=== PATIENT | female | born 1990 | race African-American/Black ===

== ENCOUNTER 2019-04-24 11:43 | Emergency (ER) | payer OTHER ==
[~2019-04-24] VITALS: Ht 162.6 cm; Wt 71.4 kg
[2019-04-24 12:40] LABS: HEMATOCRIT 38.5 % (36.0-47.0); HEMOGLOBIN 12.8 g/dl (12.0-15.5); MEAN CORPUSCULAR HEMOGLOBIN 29.4 pg (27.0-33.0); MEAN CORPUSCULAR HGB CONC 33.2 g/dl (32.0-36.5); MEAN CORPUSCULAR VOLUME 88.3 fl (80.0-96.0); PLATELET COUNT, AUTOMATED 391 10^3/uL (150-450); RED BLOOD COUNT 4.36 10^6/uL (4.00-5.40); WHITE BLOOD COUNT 5.8 10^3/uL (4.0-10.0)
[2019-04-24 13:04] LABS: INFLUENZA A AMPLIFICATION NEGATIVE (NEGATIVE); INFLUENZA B AMPLIFICATION NEGATIVE (NEGATIVE)
[2019-04-24 13:37] LABS: BLOOD UREA NITROGEN 5 MG/DL (7-18); CARBON DIOXIDE LEVEL 28 MEQ/L (21-32); CHLORIDE LEVEL 104 MEQ/L (98-107); CREATININE FOR GFR 0.49 MG/DL (0.55-1.30); GLOMERULAR FILTRATION RATE > 60.0 (>60); GLUCOSE, FASTING 87 MG/DL (70-100); HCG, SERUM QUANTITATIVE 131135 MIU/ML; POTASSIUM SERUM 4.2 MEQ/L (3.5-5.1); SODIUM LEVEL 137 MEQ/L (136-145)
[2019-04-24] MEDS ORDERED: NS 1,000 ML IV ONE (13:45)
[2019-04-24] MEDS ORDERED: ONDANSETRON 4MG/2ML VIAL (J2405) IV ONE (13:45)
[2019-04-24] MEDS ORDERED: ONDA4TAB6 PO (15:25)
[2019-04-24 15:38] VITALS: BP 101/58
== END 2019-04-24 15:47 | disposition home or self-care (01) ==
LOC: M ED 11:43
DX: O21.9 Vomiting of pregnancy, unspecified (principal); Z91.89 Other specified personal risk factors, not elsewhere classified; Z91.018 Allergy to other foods
CPT/HCPCS: 80048; 81001; 84702; 85027; 87502; 96361; 96374; 99284; J2405

== ENCOUNTER 2019-09-26 11:18 | Emergency (ER) | payer OTHER ==
[~2019-09-26] VITALS: Ht 165.1 cm; Wt 78.7 kg
[~2019-09-26 11:18] MED LIST: ONDA4TAB6 PO
[2019-09-26] MEDS ORDERED: PREN29CH2 PO (11:26)
[2019-09-26 11:54] LABS: BASO % 0.1 % (0.0-1.0); EOS # 0.1 10^3/uL (0.0-0.5); EOS % 1.8 % (0.0-3.0); HEMATOCRIT 31.6 % (36.0-47.0); HEMOGLOBIN 10.6 g/dl (12.0-15.5); LYMPH # 1.3 10^3/uL (1.5-5.0); LYMPH % 18.2 % (24.0-44.0); MEAN CORPUSCULAR HEMOGLOBIN 28.8 pg (27.0-33.0); MEAN CORPUSCULAR HGB CONC 33.5 g/dl (32.0-36.5); MEAN CORPUSCULAR VOLUME 85.9 fl (80.0-96.0); MONO # 0.8 10^3/uL (0.0-0.8); MONO % 10.6 % (0.0-5.0); NEUTROPHILS # 4.9 10^3/uL (1.5-8.5); NEUTROPHILS % 68.9 % (36.0-66.0); PLATELET COUNT, AUTOMATED 310 10^3/uL (150-450); RED BLOOD COUNT 3.68 10^6/uL (4.00-5.40); WHITE BLOOD COUNT 7.1 10^3/uL (4.0-10.0)
[2019-09-26] MEDS ORDERED: NS 1,000 ML IV ONE (12:00)
[2019-09-26 12:27] LABS: ALBUMIN 2.5 GM/DL (3.2-5.2); ALT/SGPT 14 U/L (12-78); BILIRUBIN,DIRECT < 0.1 MG/DL (0.0-0.2); BILIRUBIN,TOTAL 0.2 MG/DL (0.2-1.0); BLOOD UREA NITROGEN 5 MG/DL (7-18); CALCIUM LEVEL 8.8 MG/DL (8.5-10.1); CARBON DIOXIDE LEVEL 21 MEQ/L (21-32); CHLORIDE LEVEL 107 MEQ/L (98-107); CK-MB VALUE MASS < 1.0 NG/ML (<3.6); CPK CREATINE PHOSPHOKINASE 43 U/L (26-192); CREATININE FOR GFR 0.43 MG/DL (0.55-1.30); FREE T4 0.75 NG/DL (0.76-1.46); GLOMERULAR FILTRATION RATE > 60.0 (>60); GLUCOSE, FASTING 102 MG/DL (70-100); LIPASE 144 U/L (73-393); MB/CK RELATIVE INDEX 2.33 (< OR =4); POTASSIUM SERUM 3.6 MEQ/L (3.5-5.1); SODIUM LEVEL 137 MEQ/L (136-145); TOTAL PROTEIN 6.3 GM/DL (6.4-8.2); TROPONIN I < 0.02 NG/ML (< 0.10)
[2019-09-26 13:30] VITALS: BP 111/55
--- NOTE | 2019-09-27 10:10 | ECGEPIP ---
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
== END 2019-09-26 13:48 | disposition home or self-care (01) ==
LOC: M ED 11:18
DX: R00.2 Palpitations (principal); I49.3 Ventricular premature depolarization; Z79.899 Other long term (current) drug therapy; Z91.018 Allergy to other foods; Z91.89 Other specified personal risk factors, not elsewhere classified

== ENCOUNTER 2019-10-02 20:32 | Emergency (ER) | payer OTHER ==
[~2019-10-02] VITALS: Ht 165.1 cm; Wt 79.0 kg
[~2019-10-02 20:32] MED LIST changes: +PREN29CH2 PO
[2019-10-02] MEDS ORDERED: TUMS500C PO (20:46)
[2019-10-02] MEDS ORDERED: LEXA1TAB PO (20:46)
[2019-10-02] MEDS ORDERED: ONDANSETRON 4MG/2ML VIAL As Ordered ONE (20:54)
[2019-10-02] MEDS ORDERED: NS 1,000 ML IV ONE (21:00)
[2019-10-02] MEDS ORDERED: ONDANSETRON 4MG/2ML VIAL IV ONE (21:00)
[2019-10-02 21:25] LABS: BASO % 0.2 % (0.0-1.0); EOS # 0.1 10^3/uL (0.0-0.5); EOS % 1.3 % (0.0-3.0); HEMATOCRIT 33.6 % (36.0-47.0); LYMPH # 1.7 10^3/uL (1.5-5.0); LYMPH % 20.3 % (24.0-44.0); MEAN CORPUSCULAR HEMOGLOBIN 28.5 pg (27.0-33.0); MEAN CORPUSCULAR HGB CONC 32.7 g/dl (32.0-36.5); MONO # 0.8 10^3/uL (0.0-0.8); MONO % 10.2 % (0.0-5.0); NEUTROPHILS # 5.6 10^3/uL (1.5-8.5); NEUTROPHILS % 67.6 % (36.0-66.0); PLATELET COUNT, AUTOMATED 330 10^3/uL (150-450); RED BLOOD COUNT 3.86 10^6/uL (4.00-5.40); WHITE BLOOD COUNT 8.2 10^3/uL (4.0-10.0)
[2019-10-02 21:49] LABS: ALBUMIN 2.5 GM/DL (3.2-5.2); ALT/SGPT 15 U/L (12-78); BILIRUBIN,DIRECT < 0.1 MG/DL (0.0-0.2); BILIRUBIN,TOTAL 0.1 MG/DL (0.2-1.0); LIPASE 152 U/L (73-393); TOTAL PROTEIN 6.6 GM/DL (6.4-8.2)
[2019-10-02 22:45] VITALS: BP 111/69
[2019-10-02] MEDS ORDERED: ONDA4TAB6 PO (23:01)
== END 2019-10-02 23:25 | disposition home or self-care (01) ==
LOC: M ED 20:32
DX: K52.9 Noninfective gastroenteritis and colitis, unspecified (principal); Z79.899 Other long term (current) drug therapy; Z91.018 Allergy to other foods; Z91.89 Other specified personal risk factors, not elsewhere classified
CPT/HCPCS: 80047; 80076; 81001; 83690; 85025; 87486; 87581; 87633; 87798; 93041; 96361; 96374; 99284; J2405

== ENCOUNTER 2019-11-26 22:45 | Inpatient (IN) | payer OTHER ==
[~2019-11-26] VITALS: Ht 165.1 cm; Wt 81.0 kg
[~2019-11-26 22:45] MED LIST changes: +LEXA1TAB PO; +TUMS500C PO
[2019-11-26] MEDS ORDERED: OXYTOCIN 30 UNITS IN 0.9% NaCl 500ML IV BAG (J2590) As Ordered ONE (23:28)
[2019-11-26 23:40] LABS: HEMOGLOBIN 11.2 g/dl (12.0-15.5); MEAN CORPUSCULAR HEMOGLOBIN 27.6 pg (27.0-33.0); MEAN CORPUSCULAR HGB CONC 32.9 g/dl (32.0-36.5); MEAN CORPUSCULAR VOLUME 83.7 fl (80.0-96.0); PLATELET COUNT, AUTOMATED 346 10^3/uL (150-450); RED BLOOD COUNT 4.06 10^6/uL (4.00-5.40); WHITE BLOOD COUNT 7.6 10^3/uL (4.0-10.0)
[2019-11-26] MEDS ORDERED: FENTANYL 2MCG/ML ROPIVACAINE 0.2% IN 0.9% NACL 100ML IVBAG As Ordered ONE (23:49)
--- NOTE | 2019-11-27 00:29 | HPEPDOC ---
Obstetrical History & Physical General Date of Admission Nov 26, 2019 at 22:45 History of Present Illness 29yo presents with c/o ctx. Reports active movement. No vaginal bleeding or LOF. Chief Complaint: Contractions, term Information Provided By: Patient Age: 29 : 2 Term: 1 Livin Care Care: Good Care Dating Final EDC: Dec 07, 2019 Final EDC by: LMP LMP: Mar 02, 2019 Past Medical History Past Obstetrical History : Past Obstetrical History: Multigravida Type of Delivery: Spontaneous Vaginal Del. 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: No pertinent history Past Medical History Surgical History: Denies/None Family History Significant Family History: No pertinent family hx Social History Marital Status: Psychosocial History: No pertinent psych hx * Smoker: non-smoker Alcohol: Denies Drugs: denies Allergies Coded Allergies: Blackberry (Verified Allergy, Unknown, swelling, 04/24/19) nickel (Verified Allergy, Unknown, rash/bleeding, 04/24/19) Medications Scheduled Calcium Carbonate (Tums) 200 Mg Tab.chew, 2 TAB PO QID for cough and congestion Escitalopram Oxalate (Lexapro) 10 Mg Tablet, 10 MG PO DAILY No115/Iron/Folic Acid ( 19 Chewable Tablet) 1 Each Tab.chew, 1 TAB PO DAILY Scheduled PRN Ondansetron (Ondansetron Odt) 4 Mg Tab.rapdis, 1 TAB PO Q6-8HP PRN for nausea/vomiting Physical Examination Physical Examination GENERAL: Alert and oriented times three. BREAST: . ABDOMEN: Gravid and non-tender to touch. FETUS: Is vertex (VTX) by sterile vaginal examination (SVE), fetus is vertex (VTX) by Justin. HEART RATE: Regular rate and rhythm. LUNGS: Clear to auscultation (CTA). Laboratory Data 24H LABS Laboratory Tests 2 11/26/19 23:20: Nucleated Red Blood Cells % (auto) 0.0 11/26/19 23:44: Serology Scanned Report Hepatitis B Testing CBC/BMP Laboratory Tests 11/26/19 23:20 Pertinent Laboratoy Data Blood Type: O+ HIV: Negative Hepatitis B: Negative Rapid Plasma Reagin: Nonreactive Rubella: Immune Varicella: Immune Chlamydia/Gonorrhea: Negative Group B Streptococcus: Negative Glucose Tolerance Test: 156 Anatomy Ultrasound Placenta Location: Anterior Placenta Previa: No Other Ultrasounds echogenic focus Vaginal Examination Dilation: 6 cm Effacement: 90% Station: -1, 0 Cervical Consistency: Soft Cervical Position: Anterior Presentation: Cephalic presentation Assessment Variability: Moderate Accelerations: Positive Tocometer Contractions: Yes Frequency: regular, every 2-5 min. Assessment/Plan Assessment 29yo 38w3d in active labor Reassuring status Plan Admit and orient. 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 Group B Streptococcus (GBS) negative. Labs and intravenous (IV) per unit protocol. Counseled on Pitocin and induction of labor (IOL). Anticipate normal spontaneous delivery (). C-S as appropriate. MISA GUTIERREZ MD. Nov 27, 2019 00:29
--- NOTE | 2019-11-27 00:33 | DNPDOC ---
[facility] Delivery Note Delivery Note DATE OF DELIVERY: 11/27/2019 TIME OF : 0005 GENDER: Male. APGARS: 8 and 9. WEIGHT: 2440 grams or 5 pounds 6 ounces. LACERATIONS: periurethral, not repaired ANESTHESIA: none COUNTS: 5 laparotomy sponges accounted for prior to after delivery. DELIVERY NOTE: On 11/27/19 at 0005, Mrs Gay a 29yo G2, now P2 had a spontaneous vaginal delivery of viable male , Apgars 8 and 9 and weight was 2440 g or 5 lbs. 6 oz. Head was delivered occiput anterior (OA), followed by delivery of the shoulders and corpus. Infant was handed to mom with a good cry. Cord was clamped times two and was cut by the father of baby under my direction. Placenta was then drained and delivered grossly intact. A premixed bag of 500 mL of normal saline with 30 units of Pitocin was then bolused along with uterine massage until the uterus was firm. On inspection there was a periurethral laceration that was not repaired. Otherwise, cervix, vagina, perineum was grossly intact and hemostatic. Mom and baby in recovery on stable condition. The couple decided to name there son, Nany. MISA GUTIERREZ MD. Nov 27, 2019 00:33
[2019-11-27] MEDS ORDERED: OXYTOCIN DRIP 30 UNITS in IV 1 EA IV SCH (00:52)
[2019-11-27] MEDS ORDERED: IBUPROFEN 600MG TAB PO PRN (01:00)
[2019-11-27] MEDS ORDERED: IBUPROFEN 800 MG TAB PO PRN (01:00)
[2019-11-27] MEDS ORDERED: RHOGAM 300 MCG (1500 IU) INJ (J2790) IM SCH (01:00)
[2019-11-27] MEDS ORDERED: DIBUCAINE 1% OINTMENT 30GM TOP PRN (01:00)
[2019-11-27] MEDS ORDERED: DOCUSATE SODIUM 100 MG CAP PO PRN (01:00)
[2019-11-27] MEDS ORDERED: ANUSOL HC CREAM 30GM TOP PRN (01:00)
[2019-11-27] MEDS ORDERED: ACETAMINOPHEN 500 MG TAB PO PRN (01:00)
[2019-11-27] MEDS ORDERED: ACETAMINOPHEN TAB 650MG DOSE (2X325MG) PO PRN (01:00)
[2019-11-27] MEDS ORDERED: MEASLES,MUMPS,RUBELLA VACCINE INJ (MMR-II) (90707) SC SCH (01:00)
[2019-11-27] MEDS ORDERED: METHYLERGONOVINE MALEATE 0.2 MG TAB PO PRN (01:00)
[2019-11-27] MEDS ORDERED: MOM 30ML SUSPENSION UDC PO PRN (01:00)
[2019-11-27] MEDS ORDERED: LIDOCAINE 1% SDV 30ML VIAL SC SCH (01:15)
[2019-11-27 02:30] VITALS: BP 126/56
[2019-11-27 06:00] VITALS: BP 118/58
[2019-11-27] MEDS: PRENATAL VITAMINS CHEWABLE TABLET PO SCH (07:59)
[2019-11-27 18:07] VITALS: BP 116/60
[2019-11-28 06:00] VITALS: BP 130/70
[2019-11-28] MEDS ORDERED: IBUP80TA PO (08:22)
[2019-11-28] MEDS ORDERED: DOCU100C16 PO (08:22)
[2019-11-28] MEDS ORDERED: DIBU10OI TOP (08:22)
[2019-11-28] MEDS: PRENATAL VITAMINS CHEWABLE TABLET PO SCH (08:54)
[2019-11-28] MEDS ORDERED: INFLUENZA QUADRIVALENT PF VACCINE 0.5ML SYRINGE IM ONE (09:00)
--- NOTE | 2019-12-02 18:09 | IPN ---
DATE: 11/27/2019 HISTORY: This patient requested a circumcision of her male . PLAN: After discussing risks and benefits of the circumcision, the medical and non-medical indications, the penile block and after care expressed understanding of penile block and after care and bleeding, signed the Consent Form, all questions were answered, 20 minute discussion, we await the clearance by the coater. JUN
== END 2019-11-28 14:30 | disposition home or self-care (01) | DRG 807 ==
LOC: M LDI 22:45 → M OBS 11-27 02:27
PROVIDERS: ADMIT Obstetrics & Gynecology; ATTEND Obstetrics & Gynecology
PROC: 10E0XZZ Delivery of Products of Conception, External Approach (ICD-10-PCS; principal; 2019-11-27)
DX: O70.0 First degree perineal laceration during delivery (principal); Z37.0 Single live birth; Z3A.39 39 weeks gestation of pregnancy

== ENCOUNTER 2020-04-27 12:01 | Emergency (ER) | payer OTHER ==
[~2020-04-27] VITALS: Ht 165.1 cm; Wt 77.7 kg
[~2020-04-27 12:01] MED LIST changes: +DIBU10OI TOP; +DOCU100C16 PO; +IBUP80TA PO
[2020-04-27] MEDS ORDERED: LEXA1TAB2 PO (12:07)
--- NOTE | 2020-04-27 12:49 | REP ---
INDICATION: TRAUMA/ LIMITED ROM. COMPARISON: None. TECHNIQUE: Three views of the right shoulder are provided. FINDINGS: Three views of the right shoulder demonstrate normal alignment of the glenohumeral and acromioclavicular joints. No fracture or subluxation is seen. Periarticular soft tissues are remarkable for a metallic density overlying but outside of the right mid clavicle consistent with clothing artifact. Metallic zipper components are noted overlying the thoracic spine. IMPRESSION: Presumed clothing artifact. Otherwise negative right shoulder radiographs. No fracture or subluxation seen. <Electronically signed by Case Andrew > 04/27/20 [id number]
[2020-04-27] MEDS ORDERED: KETOROLAC TROMETHAMINE 10 MG TAB PO ONE (13:15)
[2020-04-27 13:31] VITALS: BP 132/79
== END 2020-04-27 13:41 | disposition home or self-care (01) ==
LOC: M ED 12:01
DX: S46.211A Strain of muscle, fascia and tendon of other parts of biceps, right arm, initial encounter (principal); X50.0XXA Overexertion from strenuous movement or load, initial encounter; Y92.9 Unspecified place or not applicable; Y93.B3 Activity, free weights; Y99.9 Unspecified external cause status; Z91.018 Allergy to other foods; Z91.89 Other specified personal risk factors, not elsewhere classified

== ENCOUNTER → 2020-05-27 | Outpatient (CLI) | payer OTHER ==
[~2020-05-27] MED LIST changes: +LEXA1TAB2 PO
--- NOTE | 2020-05-27 10:38 | PFTRPT ---
Height: 65.00 Inches Weight: 160.00 Lbs BSA: 1.80 Diagnosis: SOB DATE: 05/27/2020 ORDERING PHYSICIAN: Chayo Ga Pre and post bronchodilator studies have excellent technical quality. Forced vital capacity is normal. FEV1 is in proportion. Obstructive index is therefore normal. Expiratory limit of the flow-volume loop is normal. No significant bronchodilator response is identified. Total lung capacity is normal. Residual volume is in proportion. Diffusing capacity is normal and remains normal when corrected for alveolar volume. No hemoglobin available for correction. Airway resistance and conductance are normal. IMPRESSION: Normal study. MTDD
== END ==
LOC: M CARPUL 10:03
PROVIDERS: ATTEND Physician Assistant
DX: R06.02 Shortness of breath (principal)

== ENCOUNTER 2020-05-31 19:33 | Emergency (ER) | payer OTHER ==
[~2020-05-31] VITALS: Ht 165.1 cm; Wt 76.6 kg
[2020-05-31] MEDS ORDERED: ACET-838 PO (19:39)
[2020-05-31] MEDS ORDERED: GNP28TAB2 PO (19:40)
[2020-05-31 20:52] LABS: BASO % 0.4 % (0.0-1.0); EOS # 0.1 10^3/uL (0.0-0.5); EOS % 2.7 % (0.0-3.0); HEMATOCRIT 37.4 % (36.0-47.0); HEMOGLOBIN 12.2 g/dl (12.0-15.5); LYMPH # 2.1 10^3/uL (1.5-5.0); LYMPH % 40.2 % (24.0-44.0); MEAN CORPUSCULAR HGB CONC 32.6 g/dl (32.0-36.5); MEAN CORPUSCULAR VOLUME 85.8 fl (80.0-96.0); MONO # 0.7 10^3/uL (0.0-0.8); MONO % 12.5 % (2.0-8.0); NEUTROPHILS # 2.3 10^3/uL (1.5-8.5); NEUTROPHILS % 43.8 % (36.0-66.0); PLATELET COUNT, AUTOMATED 382 10^3/uL (150-450); RED BLOOD COUNT 4.36 10^6/uL (4.00-5.40); WHITE BLOOD COUNT 5.3 10^3/uL (4.0-10.0)
[2020-05-31 21:39] LABS: ALBUMIN 3.4 GM/DL (3.2-5.2); ALT/SGPT 20 U/L (12-78); BILIRUBIN,DIRECT < 0.1 MG/DL (0.0-0.2); BILIRUBIN,TOTAL 0.1 MG/DL (0.2-1.0); BLOOD UREA NITROGEN 17 MG/DL (7-18); CALCIUM LEVEL 8.8 MG/DL (8.5-10.1); CARBON DIOXIDE LEVEL 24 MEQ/L (21-32); CHLORIDE LEVEL 112 MEQ/L (98-107); CK-MB VALUE MASS < 1.0 NG/ML (<3.6); CPK CREATINE PHOSPHOKINASE 150 U/L (26-192); CREATININE FOR GFR 0.71 MG/DL (0.55-1.30); FREE T4 0.78 NG/DL (0.76-1.46); GLOMERULAR FILTRATION RATE > 60.0 (>60); GLUCOSE, FASTING 98 MG/DL (70-100); LIPASE 150 U/L (73-393); MB/CK RELATIVE INDEX 0.67 (< OR =4); SODIUM LEVEL 141 MEQ/L (136-145); THYROID STIMULATING HORMONE 0.655 uIU/ML (0.358-3.740); TOTAL PROTEIN 6.8 GM/DL (6.4-8.2); TROPONIN I < 0.02 NG/ML (< 0.10)
--- NOTE | 2020-05-31 21:46 | REPVR ---
PROCEDURE INFORMATION: Exam: XR Chest Exam date and time: 05/31/2020 8:04 PM Age: 29 years old Clinical indication: Chest pain; Additional info: "cardiac problem" TECHNIQUE: Imaging protocol: XR of the chest Views: 2 views. COMPARISON: No relevant prior studies available. FINDINGS: Lungs: Unremarkable. No consolidation. No pulmonary edema. Pleural spaces: Unremarkable. No pleural effusion. No pneumothorax. Heart/Mediastinum: Unremarkable. No cardiomegaly. Bones/joints: Unremarkable. IMPRESSION: No acute findings. Electronically signed by: Jose Cruz Colvin On 05/31/2020 21:46:16 PM
[2020-05-31] MEDS ORDERED: ISOVUE-370 76% 100ML VIAL As Ordered ONE (22:03)
--- NOTE | 2020-05-31 22:36 | REPVR ---
PROCEDURE INFORMATION: Exam: CT Angiography Chest With Contrast Exam date and time: 05/31/2020 10:11 PM Age: 29 years old Clinical indication: Shortness of breath; Additional info: pe protocol TECHNIQUE: Imaging protocol: Computed tomographic angiography of the chest with contrast. 3D rendering (Not supervised by radiologist): MIP and/or 3D reconstructed images were created by the technologist. Radiation optimization: All CT scans at this facility use at least one of these dose optimization techniques: automated exposure control; mA and/or kV adjustment per patient size (includes targeted exams where dose is matched to clinical indication); or iterative reconstruction. Contrast material: ISOVUE 370; Contrast volume: 75 ml; Contrast route: INTRAVENOUS (IV); COMPARISON: CR Chest, 2 view PA, Lat 05/31/2020 9:02 PM FINDINGS: Pulmonary arteries: No pulmonary embolism. Aorta: The thoracic aorta is intact and patent. There is no thoracic aortic aneurysm, pseudoaneurysm, penetrating atherosclerotic ulcer, intramural hematoma, or dissection. Great vessels off aortic arch: The brachiocephalic artery, imaged proximal portions of the common carotid arteries, imaged proximal portions of the vertebral arteries, and left subclavian artery are intact. No stenosis or occlusion of these vessels is noted. The right subclavian artery is obscured by streak artifact from contrast material in the right subclavian vein. Trachea: Normal. Bronchial tree: Normal. Lungs: The lungs are clear. There is no lung consolidation, pulmonary infarct, or mass. No emphysematous changes or interstitial lung disease is noted. Pleural spaces: Normal. No pneumothorax or pleural effusion. Heart: No cardiomegaly or pericardial effusion. The ratio of the diameter of the right ventricle to the diameter of the left ventricle measures less than 1, which is within normal limits and there is no CT evidence for a right ventricular strain. Mediastinal space: No mediastinal mass, fluid collection, or pneumomediastinum. Lymph nodes: No enlarged lymph nodes. Diaphragm: Intact. Gallbladder and bile ducts: The gallbladder is contracted. No calcified gallstones are seen. No dilation of the bile ducts is noted. No calcified stones are seen in the common bile duct. Spleen: The spleen is heterogeneous in appearance, which is likely secondary to the arterial timing of the contrast bolus. No splenomegaly. Adrenal glands: Normal. No adrenal mass is noted. Bones/joints: There is no fracture or dislocation. No suspicious osteolytic or osteoblastic lesion. Soft tissues: Unremarkable. No soft tissue fluid collection. IMPRESSION: 1. No acute findings in the chest. No pulmonary embolism. 2. No thoracic aortic aneurysm, pseudoaneurysm, intramural hematoma, penetrating atherosclerotic ulcer, or dissection. 3. Clear lungs. Electronically signed by: Jose Cruz Colvin On 05/31/2020 22:36:41 PM
[2020-05-31 22:49] VITALS: BP 130/60
--- NOTE | 2020-06-01 05:34 | ECGEPIP ---
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
== END 2020-05-31 22:58 | disposition home or self-care (01) ==
LOC: M ED 19:33
DX: R00.2 Palpitations (principal); Z79.899 Other long term (current) drug therapy; Z91.89 Other specified personal risk factors, not elsewhere classified; Z91.018 Allergy to other foods
CPT/HCPCS: 71046; 71275; 80048; 80076; 82550; 82553; 83690; 84439; 84443; 84484; 84702; 85025; 85379; 93005; 99284; Q9967

== ENCOUNTER 2020-12-24 17:46 | Emergency (ER) | payer OTHER ==
[~2020-12-24] VITALS: Ht 165.1 cm; Wt 78.8 kg
[~2020-12-24 17:46] MED LIST changes: +ACET32TAB PO; -DIBU10OI TOP; +DIBU28OI2 TOP; +GNP28TAB2 PO
[2020-12-24] MEDS ORDERED: BUSP10TA (17:54)
[2020-12-24] MEDS ORDERED: CYCL5TAB (17:54)
[2020-12-24 20:46] VITALS: BP 123/74
== END 2020-12-24 21:06 | disposition home or self-care (01) ==
LOC: M ED 17:46
DX: J02.9 Acute pharyngitis, unspecified (principal); J45.909 Unspecified asthma, uncomplicated; F41.9 Anxiety disorder, unspecified; F32.9 Major depressive disorder, single episode, unspecified; Z79.899 Other long term (current) drug therapy; Z91.018 Allergy to other foods; Z91.89 Other specified personal risk factors, not elsewhere classified

== ENCOUNTER 2021-06-16 09:33 | Day surgery (SDC) | payer OTHER ==
[~2021-06-16] VITALS: Ht 162.6 cm; Wt 73.0 kg
[~2021-06-16 09:33] MED LIST changes: +BUSP10TA PO; +CYCL5TAB; +LIAL1.2T PO; +NS 1,000 ML IV ONE; +VITA1TAB61 PO
[2021-06-16] MEDS ORDERED: LIDOCAINE 2% 100MG/5ML SDV (FOR ANES.) As Ordered ONE (10:53)
[2021-06-16] MEDS ORDERED: propofoL 200 MG/20 ML VIAL As Ordered ONE ×2 (10:53→11:31)
[2021-06-16 12:12] VITALS: BP 110/56
== END 2021-06-16 12:14 | disposition home or self-care (01) ==
LOC: M OPP 09:33
PROVIDERS: ATTEND Internal Medicine Gastroenterology
DX: K51.90 Ulcerative colitis, unspecified, without complications (principal); Z09 Encounter for follow-up examination after completed treatment for conditions other than malignant neoplasm; K52.89 Other specified noninfective gastroenteritis and colitis; K64.0 First degree hemorrhoids; Z79.899 Other long term (current) drug therapy; Z91.018 Allergy to other foods; Z91.048 Other nonmedicinal substance allergy status